=== PATIENT | female | born 1985 | race Caucasian/White ===

== ENCOUNTER 2016-08-07 10:07 | Day surgery (SDC) | payer MEDICAID, OTHER ==
--- NOTE | 2016-08-07 13:45 | US ---
INDICATION: Vaginal bleeding. ULTRASOUND OB LIMITED: Multiple ultrasonic images were obtained with transabdominal probe and failed to reveal a viable gestation in the uterus. The endometrial cavity is thickened. Detail is less than ideal due to empty urinary bladder. Endovaginal probe ultrasound will be necessary for further evaluation. No gross mass lesions or free fluid collections were identified. No adnexal mass lesions were seen. The right ovary measured 1.28 x 2.30 cm with a follicle noted. The left ovary measured 2.7 x 1.5 cm and was unremarkable. IMPRESSION: No viable gestation identified. Need endovaginal probe ultrasound for further evaluation. INDICATION: Need better visualization of the endometrial cavity and left ovary. ENDOVAGINAL PELVIC ULTRASOUND: Utilizing endovaginal probe, multiple ultrasonic images revealed very prominent endometrial cavity echo with relatively increased prominence in the lower uterine segment. A definite gestational sac is not identified - no viable intrauterine gestation was identified. No evidence of an ectopic could be identified. The uterus measured 10.8 x 4.63 x 5.1 cm. The endometrial cavity echo measured 22.9 mm. There is a minimal amount of free fluid in the posterior cul-de-sac. No adnexal mass lesions or free fluid collections were demonstrated. The right ovary measured 2.8 x 1.4 x 1.54 cm with follicles noted. The left ovary measured 2 x 1.1 x 0.7 cm and was unremarkable. IMPRESSION: 1. No definite ectopic . 2. No intrauterine gestation identified. 3. Very prominent endometrial cavity echoes suggest recent gestation and possibly clots present. Follow-up is recommended, as retained products of conception cannot be excluded. MTDD
[2016-08-07] MEDS ORDERED: Sodium Chloride 0.9% 10 ML Syringe FLUSH PRN (14:03)
[2016-08-07] MEDS ORDERED: Lactated Ringers 1,000 ML IV SCH (14:15)
[2016-08-07] MEDS ORDERED: Ketamine 500 mg/10 ML MDV IV ONE (14:32)
[2016-08-07] MEDS ORDERED: fentaNYL 100 MCG/2 ML SDV IV ONE (14:32)
[2016-08-07] MEDS ORDERED: Oxytocin 10 Units/1 ML SDV IV ONE (14:32)
[2016-08-07] MEDS ORDERED: Ondansetron 4 MG/2 ML SDV IVPUSH ONE (14:32)
[2016-08-07] MEDS ORDERED: Dexamethasone 4 MG/ML 5 ML MDV IVPUSH ONE (14:32)
[2016-08-07] MEDS ORDERED: Propofol 200 MG/20 ML SDV IV ONE (14:32)
[2016-08-07] MEDS ORDERED: Midazolam 1 MG/ML 2 ML SDV IV ONE (14:32)
[2016-08-07] MEDS ORDERED: Ibuprofen 600 MG Tab PO PRN (15:10)
[2016-08-07 16:58] VITALS: BP 92/48
--- NOTE | 2016-08-07 17:53 | PREOP ---
ADMISSION DATE: 08/07/2016 CHIEF COMPLAINT: Increased abdominal cramps and bleeding with incomplete spontaneous . HISTORY OF PRESENT ILLNESS: This patient is a 30-year-old female, 5, para 3-0-2-3, last menstrual period the mid June of this year, who was admitted after being seen in the emergency room with the above chief complaint. The patient states that she was doing well until last when she began having vaginal bleeding and spotting. She then began noticing increased cramps, more bleeding and spotting throughout the weekend. Bleeding became heavier today. It was actually quite heavy with clots and she thinks may be some tissue being passed. She presented to the emergency room because of increased pain and bleeding and an ultrasound was done. She had no sac, but there was a fair amount of blood and products of conception in the uterus. She has had previous miscarriages that she said she was able to do at home, but never had bleeding this heavy and cramps as hard. She was concerned and was currently found to have a hemoglobin of 10.6. She did not want to undergo any further bleeding and did not want to run the risk of transfusion, so she elected to proceed with a D and C. She has had no fever, chills, or night sweats. Denies any blurred vision or double vision. Her previous ended in two vaginal deliveries and one section. The 2nd vaginal delivery was after her section. She knows her blood type is A-positive and has not had any RhoGAM with any of her other pregnancies. She currently taking no other medicines. ALLERGIES: None that are known. SOCIAL HISTORY: She has not smoked now for 6 months; prior to that, she was about half pack per day for a few years. Alcohol, occasionally. PAST MEDICAL HISTORY: Other than that mentioned above includes neck surgery x3. She has had some pins placed in her left hand from previous fracture and the above-mentioned section. FAMILY HISTORY: Unremarkable. REVIEW OF SYSTEMS: Full review of systems was negative except for that mentioned above. PHYSICAL EXAMINATION: VITAL SIGNS: At this time showed her vitals to be as documented. HEENT: Unremarkable. Carotid pulses strong and equal without bruits. Thyroid was not enlarged. BACK: Straight. No deformities are noted. CHEST: Clear to auscultation and percussion. CARDIOVASCULAR: Revealed a normal S1 and S2 without murmur, rub, or gallop. ABDOMEN: Soft with tenderness noted in the lower quadrants and suprapubic area. There was no rebound or rigidity. Bowel sounds are present. No bruits were appreciated. Pelvic was not done by myself. The ER physician just finished when he said there was some clots and what appeared to be of products of conception in the cervical os with active bleeding. No adnexal masses were noted. EXTREMITIES: Otherwise unremarkable. LABORATORY DATA: Ultrasound as noted above with no viable gestational sac. Her hemoglobin was 10.6, hematocrit 32.2, and white count of 8800. Differential was unremarkable. Quantitative hCG was done was 11,572. IMPRESSION: Incomplete spontaneous with resultant increased bleeding, abdominal cramps, and anemia. PLAN: We will proceed with a D and C. Risks and benefits had been explained to both her and her significant other in detail including the possibility of infection, bleeding, uterine rupture etc, and they all agreed to proceed. /[id number] /CECILE
--- NOTE | 2016-08-07 23:11 | OR ---
DATE OF OPERATION: 08/07/2016 SURGEON: Heladio Remy MD PREOPERATIVE DIAGNOSIS: Incomplete spontaneous . POSTOPERATIVE DIAGNOSIS: Incomplete spontaneous . PROCEDURE: D and C. WINE BLENDER: None. PROCEDURE IN DETAIL: After risks and benefits had been explained to the patient and a time-out had been taken to identify the patient, the patient's date of , allergies, etc. She was placed in the dorsal lithotomy position and the perineum was prepped and draped in a sterile manner. Bimanual exam revealed a normal vaginal area. The cervix was dilated easily except a finger tip. Uterus is approximately 10 week size, anteverted. No other masses or abnormalities were identified. Weighted vaginal speculum was then placed and the anterior lip of the cervix was identified after retractor was placed anteriorly and anterior lip was grasped with a single-tooth tenaculum. The cervix was easily accept a 10 mm Milex curette. Therefore, suction and curettage were undertaken, removing a moderate amount of blood clots and possible placental tissue. No other tissue was identified. After curettage was undertaken throughout the entire endometrial cavity, sharp curette was placed into the endometrial cavity and completed through the endometrial cavity without difficulties. Only a small amount of remaining tissue was noted. This was again removed with the suction curette. Bleeding was minimal thereafter, and no other abnormalities were identified. The tenaculum was removed as was the weighted vaginal speculum. Bimanual exam revealed the uterus to be 6 to 8 weeks in size. Smooth and no other masses were identified. The procedure was then terminated. Sponge, needle, and instrument counts were all correct x2. The patient was awake and then transferred to her cot. Estimated blood loss was approximately 25 to 30 mL. She tolerated the procedure without any difficulty. /[id number] /MODL
--- NOTE | 2016-08-08 09:30 | ER ---
DATE SEEN: 08/07/2016 CHIEF COMPLAINT: Vaginal bleeding with cramping, , first trimester. Last menstrual period, 06/14/2016. She is approximately 7-1/2 to 8 weeks . This 6, para 3, AB 2-0-3 who presents with her with the onset of first trimester bleeding 4 days ago. She has moderate cramping and discomfort, but no associated fever. She has had 4 saturated pads for 2 hours and then 2 other pads that were full, since that in the last 4 hours. She has mild dizziness, mild lightheadedness, and no diaphoresis, chest pain, shortness of breath, or cough. She has mild cramping in the lower pelvic area. No back pain. No pain in the lower extremities. She has mild swelling on examination. MEDICATIONS: vitamins. PHYSICAL EXAMINATION: VITAL SIGNS: Blood pressure 140/97, heart rate 94, respirations 18, 99% oxygen saturation on room air, temperature is 36.8 degrees centigrade. GENERAL: Slightly overweight woman, lying in a position on her 's thigh as he sits on the gurney to comfort and support her. HEENT: PERRLA intact. Pharynx without abnormality. NECK: Supple. No thyromegaly. LUNGS: Clear to auscultation without rales, rhonchi, or wheezes. HEART: S1, S2. No murmur. ABDOMEN: Soft, mild suprapubic discomfort. No CVA percussion tenderness. With nurse present in the room, pelvic was performed. Moderate dark blood noted in the vagina, approximately 30 mL. Small tissue remnant noted at the os. No clots noted. Somewhat redundant vaginal vault. Bimanual examination of uterus: 6 to 10 cm size. Adnexa without tenderness. Serum quantitative hCG 11,572. Ultrasound; no sac. No heartbeat noted. demise noted. Placental separation is noted. ASSESSMENT: 1. Habitual , this would be her third miscarriage. 2. First trimester . Status discussed with Dr. Remy. The patient will have D and C arranged. He will be also discussing the ultrasound with Radiology. ADDITIONAL COMMENT: Hemoglobin is 10.6, white count 8800, PMNs 69, lymphocytes 23, monos 5, platelets 252,000. The patient is n.p.o., IV placed. /[id number] LS/MODL ADDENDUM: TIME SEEN: The patient was seen at 1035 hours. She is A positive. Does not require RhoGAM. /[id number] LS/MODL
== END 2016-08-07 16:31 | disposition home or self-care (01) ==
LOC: FB.ED 10:07 → FB.OB 15:00 → FB.ED 16:31
PROVIDERS: ATTEND Family Medicine
PROC: 10D18ZZ Extraction of Products of Conception, Retained, Via Natural or Artificial Opening Endoscopic (ICD-10-PCS; principal; 2016-08-07)
DX: O03.4 Incomplete spontaneous abortion without complication (principal); D64.9 Anemia, unspecified
CPT/HCPCS: 36415; 59812; 76815; 76817; 84702; 85025; 88305; 99285; J1100; J2250; J2405; J2590; J2704; J3010; J7120

== ENCOUNTER 2016-10-23 01:12 | Emergency (ER) | payer MEDICAID, OTHER ==
[2016-10-23] MEDS ORDERED: Sodium Chloride 0.9% 10 ML Syringe FLUSH PRN (01:24)
[2016-10-23] MEDS ORDERED: Ketorolac 30 MG/ML SDV IVPUSH ONE (01:24)
[2016-10-23] MEDS ORDERED: Ondansetron 4 MG/2 ML SDV IVPUSH ONE (01:25)
[2016-10-23] MEDS ORDERED: Sodium Chloride 0.9% 1,000 ML IV SCH (01:30)
--- NOTE | 2016-10-23 01:32 | EDM.PDOC ---
ED HPI GENERAL MEDICAL PROBLEM - General Stated Complaint: ABDOMINAL PAIN Time Seen by Provider: 10/23/16 01:28 Source of Information: Reports: Patient History Limitations: Reports: No Limitations - History of Present Illness INITIAL COMMENTS - FREE TEXT/NARRATIVE: c/o RUQ pain x 4h pt ate two Brats at 8:30 PM, 1h later she had pain in her RUQ, some nausea, had a nl loose BM x 1 earlier in the day had one similar episode several months ago at the same time of the evening no f/c/d, no sob, no V no prior abd surgery here with s.o. 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 Other OB/BYN History: Musculoskeletal History: Reports: Fracture Other Musculoskeletal History: fx L 4th digit Psychiatric History: Reports: Anxiety, Psych Hospitalization(s), Suicide Attempt Dermatologic History: Reports: Other (See Below) Other Dermatologic History: neck abscess with cyst - Infectious Disease History Infectious Disease History: Reports: Chicken Pox - Past Surgical History HEENT Surgical History: Reports: Oral Surgery, Tonsillectomy Female Surgical History: Reports: Section Musculoskeletal Surgical History: Reports: Other (See Below) Dermatological Surgical History: Reports: Other (See Below) Social & Family History - Family History Family Medical History: Noncontributory ED ROS GENERAL - Review of Systems Review Of Systems: See Below Constitutional: Reports: No Symptoms HEENT: Reports: No Symptoms Respiratory: Reports: No Symptoms Cardiovascular: Reports: No Symptoms Endocrine: Reports: No Symptoms GI/Abdominal: Reports: Abdominal Pain, Nausea : Reports: No Symptoms Musculoskeletal: Reports: No Symptoms Skin: Reports: No Symptoms Neurological: Reports: No Symptoms Psychiatric: Reports: No Symptoms Hematologic/Lymphatic: Reports: No Symptoms Immunologic: Reports: No Symptoms ED EXAM, GENERAL - Physical Exam Exam: See Below Exam Limited By: No Limitations General Appearance: Alert, WD/WN, No Apparent Distress Nose: Normal Inspection, Normal Mucosa, No Blood Throat/Mouth: Normal Inspection, Normal Lips, Normal Teeth, Normal Gums, Normal Oropharynx, Normal Voice, No Airway Compromise Head: Atraumatic, Normocephalic Neck: Normal Inspection, Supple, Non-Tender, Full Range of Motion Respiratory/Chest: No Respiratory Distress, Lungs Clear, Normal Breath Sounds, No Accessory Muscle Use, Chest Non-Tender Cardiovascular: Regular Rate, Rhythm, No Edema, No Gallop, No JVD, No Murmur, No Rub GI/Abdominal: Other (very good BS x 4, no guard, 1+ tender along colon from mid transverse colon to mid ascending colon, questionable rebound over the R mid ascending colon, NT in RLQ, NT at Mcknight's point, NT in epigastrium, ND, stool palpated in colon, no masses) Back Exam: Normal Inspection, Full Range of Motion, NT Extremities: Normal Inspection, Normal Range of Motion, Non-Tender, No Pedal Edema Neurological: Alert, Oriented, CN II-XII Intact, Normal Cognition, Normal Gait, No Motor/Sensory Deficits Psychiatric: Normal Affect, Normal Mood Skin Exam: Warm, Dry, Intact, Normal Color, No Rash Lymphatic: No Adenopathy Course - Vital Signs Last Recorded V/S: Last Vital Signs Temp 36.8 C 10/23/16 01:15 Pulse 84 10/23/16 01:15 Resp 20 10/23/16 01:15 BP 124/72 10/23/16 01:15 Pulse Ox - Orders/Labs/Meds Orders: Active Orders 24 hr Category Date Time Status Abdomen 2V AP Flat Upright [CR] Stat Exams 10/23/16 01:26 Ordered Sodium Chloride 0.9% [Normal Saline] 1,000 ml Med 10/23/16 01:30 Active IV ASDIRECTED Sodium Chloride 0.9% [Saline Flush] Med 10/23/16 01:24 Active 10 ml FLUSH ASDIRECTED PRN Saline Lock Insert [OM.PC] Routine Oth 10/23/16 01:24 Ordered Medication Orders Sodium Chloride (Normal Saline) 1,000 mls @ 999 mls/hr IV ASDIRECTED HANY Last Admin: 10/23/16 02:31 Dose: 999 mls/hr Sodium Chloride (Saline Flush) 10 ml FLUSH ASDIRECTED PRN PRN Reason: Keep Vein Open Last Admin: 10/23/16 02:31 Dose: 10 ml Labs: Laboratory Tests 10/23/16 10/23/16 10/23/16 Range/Units 01:30 01:30 01:50 WBC 9.8 (4.5-12.0) X10-3/uL RBC 4.34 (3.23-5.20) x10(6)uL Hgb 11.7 (11.5-15.5) g/dL Hct 35.0 (30.0-51.3) % MCV 80.6 (80-96) fL MCH 26.9 L (27.7-33.6) pg MCHC 33.4 (32.2-35.4) g/dL RDW 13.6 (11.5-15.5) % Plt Count 252 (125-369) X10(3)uL MPV 8.7 (7.4-10.4) fL Neut % (Auto) 56.6 (46-82) % Lymph % (Auto) 31.5 (13-37) % [place] % (Auto) 7.9 (4-12) % Eos % (Auto) 3 (1.0-5.0) % Baso % (Auto) 1 (0-2) % Neut # (Auto) 5.5 (1.6-8.3) # Lymph # (Auto) 3.1 (0.6-5.0) # [place] # (Auto) 0.8 (0.0-1.3) # Eos # (Auto) 0.3 (0.0-0.8) # Baso # (Auto) 0.1 (0.0-0.2) # Sodium (135-145) mmol/L Potassium (3.5-5.3) mmol/L Chloride (100-110) mmol/L Carbon Dioxide (23-29) mmol/L BUN (5-20) mg/dL Creatinine (0.6-1.3) mg/dL Est Cr Clr Drug Dosing Estimated GFR (MDRD) (>60) BUN/Creatinine Ratio (9-20) Glucose (80-116) mg/dL Calcium (8.6-10.2) mg/dL Total Bilirubin (0.1-1.3) mg/dL AST (5-27) IU/L ALT (14-26) IU/L Alkaline Phosphatase (56-112) IU/L C-Reactive Protein (0.0-1.0) mg/dL Total Protein (6.0-8.0) g/dL Albumin (3.5-5.2) g/dL Globulin g/dL Albumin/Globulin Ratio Amylase (28-100) U/L Urine Color Yellow (YELLOW) Urine Appearance Slightly cloudy (CLEAR) Urine pH 6.0 (5.0-6.5) Ur Specific [place] 1.025 (1.010-1.025) Urine Protein Negative (NEGATIVE) mg/dL Urine Glucose (UA) Normal (NEGATIVE) mg/dL Urine Ketones Negative (NEGATIVE) mg/dL Urine Occult Blood Negative (NEGATIVE) Urine Nitrite Negative (NEGATIVE) Urine Bilirubin Negative (NEGATIVE) Urine Urobilinogen Normal (NEGATIVE) mg/dL Ur Leukocyte Esterase Negative (NEGATIVE) Urine RBC 0-5 (0) Urine WBC 0-5 (0) Urine Bacteria Few H (NS) Urine HCG, Qual Negative (NEGATIVE) 10/23/16 Range/Units 01:50 WBC (4.5-12.0) X10-3/uL RBC (3.23-5.20) x10(6)uL Hgb (11.5-15.5) g/dL Hct (30.0-51.3) % MCV (80-96) fL MCH (27.7-33.6) pg MCHC (32.2-35.4) g/dL RDW (11.5-15.5) % Plt Count (125-369) X10(3)uL MPV (7.4-10.4) fL Neut % (Auto) (46-82) % Lymph % (Auto) (13-37) % [place] % (Auto) (4-12) % Eos % (Auto) (1.0-5.0) % Baso % (Auto) (0-2) % Neut # (Auto) (1.6-8.3) # Lymph # (Auto) (0.6-5.0) # [place] # (Auto) (0.0-1.3) # Eos # (Auto) (0.0-0.8) # Baso # (Auto) (0.0-0.2) # Sodium 139 (135-145) mmol/L Potassium 4.1 (3.5-5.3) mmol/L Chloride 106 (100-110) mmol/L Carbon Dioxide 27 (23-29) mmol/L BUN 18 (5-20) mg/dL Creatinine 0.8 (0.6-1.3) mg/dL Est Cr Clr Drug Dosing TNP Estimated GFR (MDRD) > 60 (>60) BUN/Creatinine Ratio 22.5 H (9-20) Glucose 111 (80-116) mg/dL Calcium 9.0 (8.6-10.2) mg/dL Total Bilirubin 0.3 (0.1-1.3) mg/dL AST 20 (5-27) IU/L ALT 13 L (14-26) IU/L Alkaline Phosphatase 37 L (56-112) IU/L C-Reactive Protein 0.9 (0.0-1.0) mg/dL Total Protein 7.4 (6.0-8.0) g/dL Albumin 3.8 (3.5-5.2) g/dL Globulin 3.6 g/dL Albumin/Globulin Ratio 1.1 Amylase 73 (28-100) U/L Urine Color (YELLOW) Urine Appearance (CLEAR) Urine pH (5.0-6.5) Ur Specific [place] (1.010-1.025) Urine Protein (NEGATIVE) mg/dL Urine Glucose (UA) (NEGATIVE) mg/dL Urine Ketones (NEGATIVE) mg/dL Urine Occult Blood (NEGATIVE) Urine Nitrite (NEGATIVE) Urine Bilirubin (NEGATIVE) Urine Urobilinogen (NEGATIVE) mg/dL Ur Leukocyte Esterase (NEGATIVE) Urine RBC (0) Urine WBC (0) Urine Bacteria (NS) Urine HCG, Qual (NEGATIVE) Meds: Medications Generic Name Dose Route Start Last Admin Trade Name Freq PRN Reason Stop Dose Admin Sodium Chloride 1,000 mls @ 999 mls/hr 10/23/16 01:30 10/23/16 02:31 Normal Saline IV 999 mls/hr ASDIRECTED HANY Administration Sodium Chloride 10 ml 10/23/16 01:24 10/23/16 02:31 Saline Flush FLUSH 10 ml ASDIRECTED PRN Administration Keep Vein Open Discontinued Medications Generic Name Dose Route Start Last Admin Trade Name Freq PRN Reason Stop Dose Admin Acetaminophen 1,000 mg 10/23/16 03:17 10/23/16 03:27 Tylenol Extra Strength PO 10/23/16 03:18 1,000 mg ONETIME ONE Administration Dicyclomine HCl 10 mg 10/23/16 03:17 10/23/16 03:27 Bentyl PO 10/23/16 03:18 10 mg ONETIME ONE Administration Ketorolac Tromethamine 30 mg 10/23/16 01:24 10/23/16 02:30 Toradol IVPUSH 10/23/16 01:25 30 mg ONETIME ONE Administration Ondansetron HCl 4 mg 10/23/16 01:25 10/23/16 02:30 Zofran IVPUSH 10/23/16 01:26 4 mg ONETIME ONE Administration - Re-Assessments/Exams Free Text/Narrative Re-Assessment/Exam: 10/23/16 03:09 labs neg, SG 1.025, KUB flat and upright with no AFL and stool throughout colon , R>L, pt still with tenderness at hepatic flexure and R half of transverse colon 10/23/16 03:48 pt declined MS, agreed to rest today Departure - Departure Time of Disposition: 03:49 Disposition: Home, Self-Care 01 Condition: good Clinical Impression: Spasm of bowel, Dehydration, Constipation - Discharge Information Prescriptions: Dicyclomine HCl [Bentyl] 10 mg PO QID #12 capsule Additional Instructions: Drink a 10-ounce bottle of magnesium citrate this morning. Drink a second bottle 6 hours. Take acetaminophen 500 mg 2 tabs and ibuprofen 200 mg 3 tabs 4 times a day today and tomorrow. For cramping and spasm, take dicyclomine 10 mg 1 tab 4 times a day for 2 days. Soak in warm tub for 10-15 minutes several times a day. Rest. Increase fluids, at least 2 liters daily without caffeine. No work today. See your physician tomorrow. Return to ED if you are feeling worse. Call your Physician or Return to Emergency Department if: * Your condition worsens in any way. * You develop fever greater than 100.4. * You have vomitting that does not stop with medications. * You have pain that is not controlled with medications. - My Orders Last 24 Hours: My Active Orders 10/23/16 01:24 Sodium Chloride 0.9% [Saline Flush] 10 ml FLUSH ASDIRECTED PRN Saline Lock Insert [OM.PC] Routine 10/23/16 01:26 Abdomen 2V AP Flat Upright [CR] Stat 10/23/16 01:30 Sodium Chloride 0.9% [Normal Saline] 1,000 ml IV ASDIRECTED - Assessment/Plan Last 24 Hours: My Active Orders 10/23/16 01:24 Sodium Chloride 0.9% [Saline Flush] 10 ml FLUSH ASDIRECTED PRN Saline Lock Insert [OM.PC] Routine 10/23/16 01:26 Abdomen 2V AP Flat Upright [CR] Stat 10/23/16 01:30 Sodium Chloride 0.9% [Normal Saline] 1,000 ml IV ASDIRECTED
[2016-10-23] MEDS ORDERED: Dicyclomine 10 MG Cap PO ONE (03:17)
[2016-10-23] MEDS ORDERED: Acetaminophen 500 MG Tab PO ONE (03:17)
[2016-10-23 03:56] VITALS: BP 124/62
--- NOTE | 2016-10-23 10:49 | CR ---
INDICATION: Right upper quadrant pain, question constipation. ABDOMEN: Five images of the abdomen were obtained in supine and upright projections and revealed two capsules in the left lower quadrant. An air-fluid level is noted in that area of the left lower quadrant of questionable significance. It may be incidental to fluid ingestion with the capsules. The pattern of gas and feces was otherwise nonspecific without evidence of a definite obstructive process or free air. No organomegaly, mass lesions, or pathologic calcifications were suggested - there are a few phleboliths in the pelvis, however, making it difficult to entirely exclude a distal ureteral calculus - correlate clinically. Findings do not strongly suggest constipation, as a normal amount of stool is suggested in the colon. IMPRESSION: Fairly nonspecific abdomen, as noted above. MTDD
== END 2016-10-23 03:56 | disposition home or self-care (01) ==
LOC: FB.ED 01:12
DX: E86.0 Dehydration (principal); K58.9 Irritable bowel syndrome, unspecified; K59.00 Constipation, unspecified; Z98.890 Other specified postprocedural states; Z90.89 Acquired absence of other organs
CPT/HCPCS: 36415; 74020; 80053; 81001; 81025; 82150; 85025; 86140; 96361; 96374; 96375; 99284; A9270; J1885; J2405; J7040; J7050

== ENCOUNTER 2017-02-14 14:50 | Emergency (ER) | payer MEDICAID, OTHER ==
[2017-02-14] MEDS ORDERED: ClonazePAM 1 MG Tab PO STA (15:00)
--- NOTE | 2017-02-14 15:06 | EDM.PDOCBH ---
ED HPI GENERAL MEDICAL PROBLEM - General Chief Complaint: Behavioral/Psych Stated Complaint: SOB, ANXIETY Time Seen by Provider: 02/14/17 15:02 Source of Information: Reports: Patient History Limitations: Reports: No Limitations - History of Present Illness INITIAL COMMENTS - FREE TEXT/NARRATIVE: 31 yo female with a pHx of panic attacks presents with another episode. Also has tingling of her hands and mouth. Feels like previous episodes, but is lasting longer than usual. Used to have clonazepam for these attacks, but ran out and didn't refill because the episodes were getting milder and further between. Is here with her male significant other. Onset: Today Onset Date: 02/14/17 Onset Time: 14:25 Duration: Minutes: Location: Reports: Generalized Severity: Moderate Improves with: Reports: Medication (clonazepam) Worsens with: Reports: Other (unknown) Context: Reports: Other (Hx of panic) Associated Symptoms: Reports: Shortness of Breath, Other (light-headed, tingling of face and extremities.). 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 Other OB/BYN History: Musculoskeletal History: Reports: Fracture Other Musculoskeletal History: fx L 4th digit Psychiatric History: Reports: Anxiety, Psych Hospitalization(s), Suicide Attempt Dermatologic History: Reports: Other (See Below) Other Dermatologic History: neck abscess with cyst - Infectious Disease History Infectious Disease History: Reports: Chicken Pox - Past Surgical History HEENT Surgical History: Reports: Oral Surgery, Tonsillectomy Female Surgical History: Reports: Section Musculoskeletal Surgical History: Reports: Other (See Below) Dermatological Surgical History: Reports: Other (See Below) Social & Family History - Family History Family Medical History: Noncontributory - Tobacco Use Smoking Status *Q: Never Smoker Second Hand Smoke Exposure: No - Caffeine Use Caffeine Use: Reports: Coffee - Recreational Drug Use Recreational Drug Use: No ED ROS GENERAL - Review of Systems Review Of Systems: See Below Constitutional: Reports: No Symptoms HEENT: Reports: No Symptoms Respiratory: Reports: Shortness of Breath Cardiovascular: Reports: No Symptoms Endocrine: Reports: No Symptoms GI/Abdominal: Reports: No Symptoms : Reports: No Symptoms Musculoskeletal: Reports: No Symptoms Skin: Reports: No Symptoms Neurological: Reports: Dizziness (light-headed), Numbness (hands/face), Tingling Psychiatric: Reports: Anxiety Hematologic/Lymphatic: Reports: No Symptoms ED EXAM, BEHAVIORAL HEALTH - Physical Exam Exam: See Below Exam Limited By: No Limitations General Appearance: Alert, WD/WN, Anxious, Mild Distress Eye Exam: Bilateral Eye: Normal Inspection Ears: Normal External Exam, Normal Canal, Hearing Grossly Normal Nose: Normal Inspection, Normal Mucosa, No Blood Throat/Mouth: Normal Inspection, Normal Lips, Normal Teeth, Normal Oropharynx, Normal Voice, No Airway Compromise Head: Atraumatic, Normocephalic Neck: Normal Inspection Respiratory/Chest: No Respiratory Distress, Lungs Clear, Normal Breath Sounds, No Accessory Muscle Use, Other (hyperventilation) Cardiovascular: Regular Rate, Rhythm, No Edema GI/Abdominal: Normal Bowel Sounds, Soft, Non-Tender Back Exam: Normal Inspection. No: CVA Tenderness (R), CVA Tenderness (L) Extremities: Normal Inspection, Normal Range of Motion, Non-Tender, No Pedal Edema Neurological: Alert, Normal Mood/Affect, CN II-XII Intact, Normal Cognition, No Motor/Sensory Deficits, Oriented x 3 Psychiatric: Alert, Normal Cognition, Other (anxious) Skin Exam: Warm, Dry, Intact, Normal color, No rash COURSE, BEHAVIORAL HEALTH COMP - Course Vital Signs: Last Vital Signs Temp 36.5 C 02/14/17 15:21 Pulse 57 L 02/14/17 15:21 Resp 13 02/14/17 15:21 BP 123/81 02/14/17 15:21 Pulse Ox 100 02/14/17 15:21 Orders, Labs, Meds: Medications Discontinued Medications Generic Name Dose Route Start Last Admin Trade Name Freq PRN Reason Stop Dose Admin Clonazepam 1 mg 02/14/17 15:00 02/14/17 15:08 Klonopin PO 02/14/17 15:01 1 mg NOW STA Administration Departure - Departure Time of Disposition: 15:45 Disposition: Home, Self-Care 01 Condition: Good Clinical Impression: Panic disorder - Discharge Information Referrals: Garcia Tyler MD [Primary Care Provider] - Forms: ED Department Discharge
[2017-02-14 16:00] VITALS: BP 133/98
== END 2017-02-14 15:55 | disposition home or self-care (01) ==
LOC: FB.ED 14:50
DX: F41.0 Panic disorder [episodic paroxysmal anxiety] (principal)
CPT/HCPCS: 99283; A9270

== ENCOUNTER 2017-02-14 17:26 | Emergency (ER) | payer OTHER ==
[2017-02-14] MEDS ORDERED: ClonazePAM 0.5 MG Tab PO ONE (17:49)
[2017-02-14] MEDS ORDERED: LORazepam 0.5 MG Tab PO ONE (18:28)
--- NOTE | 2017-02-14 18:31 | EDM.PDOC ---
ED HPI GENERAL MEDICAL PROBLEM - General Chief Complaint: General Stated Complaint: ANXIETY Time Seen by Provider: 02/14/17 18:10 Source of Information: Reports: Patient History Limitations: Reports: No Limitations - History of Present Illness INITIAL COMMENTS - FREE TEXT/NARRATIVE: 31 yo female was seen earlier in the day today for a panic attack that resolved with 1 mg of clonazepam. Had gone a long time without a spell and used to get relief from 0.5 mg dosing. Is not on any SSRI's due to SE's. Had tried Zoloft, Prozac, and Celexa. Has not tried paroxetine. Significant other is leaving to work in [place] soon for an extended period, just found out today. Took clonazepam 0.5 mg at the onset of her 2nd panic attack today and it failed to resolve her attack. Is here now for additional help. Onset: Today Onset Date: 02/14/17 Onset Time: 17:30 Duration: Minutes:, Constant Location: Reports: Generalized Quality: Reports: Other (tingling of extrems/mouth) Severity: Moderate Improves with: Reports: Medication Worsens with: Reports: Other (unknown) Context: Reports: Other (significant other leaving [facility] for work soon.) Associated Symptoms: Reports: Shortness of Breath, Other (tingling, some abdominal discomfort) Treatments OPERATOR SUPPLY: Reports: Other Medication(s) (clonazepam 0.5 mg po) - Related Data Allergies Allergy/AdvReac Type Severity Reaction Status Date / Time No Known Allergies Allergy Verified 02/14/17 18:07 Home Meds: Home Meds ClonazePAM [KlonoPIN] 0.5 mg PO TID PRN #4 tab 02/14/17 [Rx] ClonazePAM [KlonoPIN] 1 - 2 tab PO TID PRN #20 tab 02/14/17 [Rx] Ibuprofen 600 mg PO Q6H PRN 02/14/17 [History] PARoxetine [Paxil] 10 mg PO DAILY #60 ml 02/14/17 [Rx] Past Medical History - Past Health History Medical/Surgical History: Denies 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/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 History 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: , 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 Other OB/BYN History: Musculoskeletal History: Reports: Fracture Other Musculoskeletal History: fx L 4th digit Psychiatric History: Reports: Anxiety, Psych Hospitalization(s), Suicide Attempt Dermatologic History: Reports: Other (See Below) Other Dermatologic History: neck abscess with cyst - Infectious Disease History Infectious Disease History: Reports: Chicken Pox - Past Surgical History HEENT Surgical History: Reports: Oral Surgery, Tonsillectomy Female Surgical History: Reports: Section Musculoskeletal Surgical History: Reports: Other (See Below) Dermatological Surgical History: Reports: Other (See Below) Social & Family History - Family History Family Medical History: Noncontributory - Tobacco Use Smoking Status *Q: Former Smoker Used Tobacco, but Quit: Yes Month Tobacco Last Used: quit a year ago Second Hand Smoke Exposure: No - Caffeine Use Caffeine Use: Reports: Coffee - Recreational Drug Use Recreational Drug Use: No ED ROS GENERAL - Review of Systems Review Of Systems: See Below Constitutional: Reports: No Symptoms HEENT: Reports: No Symptoms Respiratory: Reports: Shortness of Breath Cardiovascular: Reports: No Symptoms GI/Abdominal: Reports: No Symptoms : Reports: No Symptoms Musculoskeletal: Reports: No Symptoms Skin: Reports: No Symptoms Neurological: Reports: Tingling (around mouth and fingers) Psychiatric: Reports: Anxiety Hematologic/Lymphatic: Reports: No Symptoms ED EXAM, GENERAL - Physical Exam Exam: See Below Exam Limited By: No Limitations General Appearance: Alert, WD/WN, No Apparent Distress Eye Exam: Bilateral Eye: Normal Inspection, PERRL Ears: Normal External Exam, Normal Canal, Hearing Grossly Normal Ear Exam: Bilateral Ear: Auricle Normal, Canal Normal Nose: Normal Inspection, Normal Mucosa Throat/Mouth: Normal Inspection, Normal Lips, Normal Teeth, Normal Oropharynx, Normal Voice, No Airway Compromise Head: Atraumatic, Normocephalic Neck: Normal Inspection, Supple Respiratory/Chest: No Respiratory Distress, Lungs Clear, Normal Breath Sounds, No Accessory Muscle Use, Other (hyperventilation) Cardiovascular: Regular Rate, Rhythm, No Edema GI/Abdominal: Normal Bowel Sounds, Soft, Non-Tender, No Distention Back Exam: Normal Inspection, Full Range of Motion. No: CVA Tenderness (R), CVA Tenderness (L) Extremities: Normal Inspection, Non-Tender, No Pedal Edema, Pedal Edema Neurological: Alert, Oriented, CN II-XII Intact, Normal Cognition Psychiatric: Normal Affect, Anxious Skin Exam: Warm, Dry, Intact, Normal Color, No Rash Lymphatic: No Adenopathy Course - Vital Signs Last Recorded V/S: Last Vital Signs Temp 36.5 C 02/14/17 18:09 Pulse 86 02/14/17 18:09 Resp 20 02/14/17 18:09 BP 133/81 02/14/17 18:09 Pulse Ox 100 02/14/17 18:09 - Orders/Labs/Meds Meds: Medications Discontinued Medications Generic Name Dose Route Start Last Admin Trade Name Freq PRN Reason Stop Dose Admin Clonazepam 1 mg 02/14/17 17:49 02/14/17 17:59 Klonopin PO 02/14/17 17:50 1 mg ONETIME ONE Administration Paroxetine HCl 10 mg 02/14/17 18:19 Paxil PO 02/14/17 18:20 NOW STA Departure - Departure Time of Disposition: 18:37 Disposition: Home, Self-Care 01 Condition: Fair Clinical Impression: Panic disorder - Discharge Information Prescriptions: ClonazePAM [KlonoPIN] 1 - 2 tab PO TID PRN #20 tab PRN Reason: Anxiety PARoxetine [Paxil] 10 mg PO DAILY #60 ml Referrals: Garcia Tyler MD [Primary Care Provider] - Forms: ED Department Discharge Additional Instructions: Take clonazepam 1-2 every 8 hrs as needed. Take paroxetine daily as directed. Recheck with a mental health provider at your earliest opportunity. No driving when taking clonazepam.
[2017-02-14 18:46] VITALS: BP 127/76
== END 2017-02-14 18:40 | disposition home or self-care (01) ==
LOC: FB.ED 17:26
DX: F41.0 Panic disorder [episodic paroxysmal anxiety] (principal); Z87.891 Personal history of nicotine dependence; Z79.899 Other long term (current) drug therapy
CPT/HCPCS: 99283; A9270

== ENCOUNTER 2017-04-28 00:16 | Emergency (ER) | payer SELFPAY ==
[2017-04-28 01:16] VITALS: BP 136/84
[2017-04-28] MEDS ORDERED: Ondansetron 4 MG Tab.DIS PO STA (01:21)
[2017-04-28] MEDS ORDERED: Acetaminophen 500 MG Tab PO ONE (01:22)
[2017-04-28] MEDS ORDERED: Alum Hydroxide/Mag Hydroxide 15 ML, Lidocaine 2% 15 ML PO ONE ×2 (01:22)
--- NOTE | 2017-04-28 01:26 | EDM.PDOC ---
ED HPI GENERAL MEDICAL PROBLEM - General Chief Complaint: Abdominal Pain Stated Complaint: ABD PAIN Time Seen by Provider: 04/28/17 01:15 Source of Information: Reports: Patient, Old Records History Limitations: Reports: No Limitations - History of Present Illness INITIAL COMMENTS - FREE TEXT/NARRATIVE: 31 yo female here with epigastric pain for a couple days. Its seems to be worse at night. Was seen last night in [place], [place] ER for this. Was not sent home with any pain meds. They told her she needed to schedule an outpatient US which she has not yet done. She is 5 weeks . No fever. Has nausea without vomiting. Was given an H2 ramírez upon discharge last night. H. pylori testing was negative. She is . Both her mother and sister have had their gallbladders out. Onset: Other Onset Date: 04/25/17 Duration: Day(s):, Waxing/Waning Location: Reports: Abdomen Quality: Reports: Burning Severity: Moderate Improves with: Reports: None Worsens with: Reports: Other (at night) Context: Reports: Other (see HPI) Associated Symptoms: Reports: Loss of Appetite, Nausea/Vomiting (no vomiting). 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 Other OB/BYN History: Musculoskeletal History: Reports: Fracture Other Musculoskeletal History: fx L 4th digit Psychiatric History: Reports: Anxiety, Psych Hospitalization(s), Suicide Attempt Dermatologic History: Reports: Other (See Below) Other Dermatologic History: neck abscess with cyst - Infectious Disease History Infectious Disease History: Reports: Chicken Pox - Past Surgical History HEENT Surgical History: Reports: Oral Surgery, Tonsillectomy Female Surgical History: Reports: Section Musculoskeletal Surgical History: Reports: Other (See Below) Dermatological Surgical History: Reports: Other (See Below) Social & Family History - Family History Family Medical History: Noncontributory - Tobacco Use Smoking Status *Q: Never Smoker Used Tobacco, but Quit: Yes Month Tobacco Last Used: quit a year ago Second Hand Smoke Exposure: No - Caffeine Use Caffeine Use: Reports: Coffee - Recreational Drug Use Recreational Drug Use: No ED ROS GENERAL - Review of Systems Review Of Systems: See Below Constitutional: Reports: Decreased Appetite HEENT: Reports: No Symptoms Respiratory: Reports: No Symptoms Cardiovascular: Reports: No Symptoms Endocrine: Reports: No Symptoms GI/Abdominal: Reports: Abdominal Pain (epigastric), Decreased Appetite, Nausea. Denies: Constipation, Diarrhea, Distension, Hematemesis, Hematochezia, Vomiting : Reports: No Symptoms Musculoskeletal: Reports: No Symptoms Skin: Reports: No Symptoms Neurological: Reports: No Symptoms Psychiatric: Reports: No Symptoms Hematologic/Lymphatic: Reports: No Symptoms ED EXAM, GI/ABD - Physical Exam Exam: See Below Exam Limited By: No Limitations General Appearance: Alert, WD/WN, No Apparent Distress Eyes: Bilateral: Normal Appearance Ears: Normal External Exam, Normal Canal, Hearing Grossly Normal Nose: Normal Inspection, Normal Mucosa, No Blood Throat/Mouth: Normal Inspection, Normal Lips, Normal Teeth, Normal Oropharynx, Normal Voice, No Airway Compromise Head: Atraumatic, Normocephalic Neck: Normal Inspection, Supple, Non-Tender Respiratory/Chest: No Respiratory Distress, Lungs Clear, Normal Breath Sounds, No Accessory Muscle Use Cardiovascular: Regular Rate, Rhythm, No Edema GI/Abdominal Exam: Normal Bowel Sounds, Soft, No Distention, Tender (epigastric and RUQ tenderness.). No: Distended, Abnormal Bowel Sounds, Hepatomegaly, Splenomegaly Back Exam: Normal Inspection Extremities: Normal Inspection Neurological: Alert, Oriented, CN II-XII Intact, Normal Cognition, No Motor/ Sensory Deficits Psychiatric: Normal Affect, Normal Mood Skin Exam: Warm, Dry, Intact, Normal Color, No Rash Lymphatic: No Adenopathy Course - Vital Signs Last Recorded V/S: Last Vital Signs Temp 36.7 C 04/28/17 00:35 Pulse 78 04/28/17 00:35 Resp 16 04/28/17 00:35 BP 136/84 04/28/17 00:35 Pulse Ox 98 04/28/17 00:35 - Orders/Labs/Meds Labs: Laboratory Tests 04/28/17 04/28/17 04/28/17 Range/Units 01:30 01:30 01:30 WBC 8.4 (4.5-12.0) X10-3/uL RBC 3.58 (3.23-5.20) x10(6)uL Hgb 10.5 L (11.5-15.5) g/dL Hct 30.8 (30.0-51.3) % MCV 86.0 (80-96) fL MCH 29.4 (27.7-33.6) pg MCHC 34.1 (32.2-35.4) g/dL RDW 12.5 (11.5-15.5) % Plt Count 271 (125-369) X10(3)uL Alkaline Phosphatase (56-112) IU/L C-Reactive Protein < 0.5 (0.0-1.0) mg/dL Amylase 70 (28-100) U/L 04/28/17 Range/Units 01:30 WBC (4.5-12.0) X10-3/uL RBC (3.23-5.20) x10(6)uL Hgb (11.5-15.5) g/dL Hct (30.0-51.3) % MCV (80-96) fL MCH (27.7-33.6) pg MCHC (32.2-35.4) g/dL RDW (11.5-15.5) % Plt Count (125-369) X10(3)uL Alkaline Phosphatase 31 L (56-112) IU/L C-Reactive Protein (0.0-1.0) mg/dL Amylase (28-100) U/L Meds: Medications Discontinued Medications Generic Name Dose Route Start Last Admin Trade Name Adolph PRN Reason Stop Dose Admin Acetaminophen 1,000 mg 04/28/17 01:22 04/28/17 01:33 Tylenol Extra Strength PO 04/28/17 01:23 1,000 mg ONETIME ONE Administration Al Hydroxide/Mg Hydroxide 15 0 ml 04/28/17 01:22 04/28/17 01:33 ml/ Lidocaine HCl 15 ml PO 04/28/17 01:23 30 ml ONETIME ONE Administration Ondansetron HCl 4 mg 04/28/17 01:21 04/28/17 01:34 Zofran Odt PO 04/28/17 01:22 4 mg ONETIME STA Administration Departure - Departure Time of Disposition: 02:10 Disposition: Home, Self-Care 01 Condition: Fair Clinical Impression: Epigastric pain, RUQ abdominal pain, Nausea - Discharge Information Referrals: PCP,None [Primary Care Provider] - Forms: ED Department Discharge
[2017-04-28] MEDS ORDERED: Ondansetron 4 MG Tab.DIS PO ONE (02:07)
[2017-04-28] MEDS ORDERED: Acetaminophen/oxyCODONE 325-5 MG Tab PO ONE (02:07)
== END 2017-04-28 02:15 | disposition home or self-care (01) ==
LOC: FB.ED 00:16
DX: R10.13 Epigastric pain (principal); R11.0 Nausea
CPT/HCPCS: 36415; 82150; 84075; 85027; 86140; 99284; A9270

== ENCOUNTER 2017-07-29 13:20 | Emergency (ER) | payer MEDICAID, OTHER ==
[2017-07-29] MEDS ORDERED: Alum Hydroxide/Mag Hydroxide 15 ML, Lidocaine 2% 15 ML PO ONE ×2 (13:41)
[2017-07-29] MEDS ORDERED: Ondansetron 8 MG Tab.DIS PO ONE (13:41)
[2017-07-29] MEDS ORDERED: Sodium Chloride 0.9% 10 ML Syringe FLUSH PRN (13:47)
--- NOTE | 2017-07-29 14:54 | EDM.PDOC ---
ED HPI GENERAL MEDICAL PROBLEM - General Chief Complaint: Chest Pain Stated Complaint: epigastric pain Time Seen by Provider: 07/29/17 13:40 Source of Information: Reports: Patient History Limitations: Reports: Other (, epicgastric pain) - History of Present Illness INITIAL COMMENTS - FREE TEXT/NARRATIVE: 31 y.o.w.f 18 weeks , came to the ed deu to acute mid upper abd.pain with pain radiating to her left and right upper abdomen. Symptoms started spontaneously while watching TV. Pt had similar symptoms before her . She was on Prilosec in the past without improvement. The symptoms are lasting 5- 10 min and sometimes longer. Pt did not see a GI specialist but will see her PMD tomorrow. No Trauma. No other acute medical issues. BP 163/103 pulse 85 Temp 36.6 Pulse ox 100% RR 18 Onset Date: 07/29/17 Onset Time: 13:00 Duration: Hour(s): Location: Reports: Abdomen Quality: Reports: Ache, Burning Severity: Moderate Improves with: Reports: Medication Worsens with: Reports: None Associated Symptoms: Reports: Other (nausea) Chest Pain Score (Numeric/FACES): 10 - Related Data Allergies Allergy/AdvReac Type Severity Reaction Status Date / Time No Known Allergies Allergy Verified 07/29/17 13:36 Home Meds: Home Meds NK [No Known Home Meds] 04/28/17 [History] Past Medical History - Past Health History Medical/Surgical History: Denies 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: , 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 Other OB/BYN History: Musculoskeletal History: Reports: Fracture, Other (See Below) Other Musculoskeletal History: fx L 4th digit Psychiatric History: Reports: Anxiety, Psych Hospitalization(s), Suicide Attempt Dermatologic History: Reports: Other (See Below) Other Dermatologic History: neck abscess with cyst - Infectious Disease History Infectious Disease History: Reports: Chicken Pox - Past Surgical History HEENT Surgical History: Reports: Oral Surgery, Tonsillectomy Female Surgical History: Reports: Section Social & Family History - Family History Family Medical History: Noncontributory - Tobacco Use Smoking Status *Q: Former Smoker Used Tobacco, but Quit: Yes Month Tobacco Last Used: quit 1.5 years ago Second Hand Smoke Exposure: No - Caffeine Use Caffeine Use: Reports: Coffee - Recreational Drug Use Recreational Drug Use: No ED ROS GENERAL - Review of Systems Review Of Systems: See Below Constitutional: Reports: No Symptoms HEENT: Reports: No Symptoms Respiratory: Reports: No Symptoms Cardiovascular: Reports: No Symptoms Endocrine: Reports: No Symptoms GI/Abdominal: Reports: Abdominal Pain (epigastric) : Reports: No Symptoms Musculoskeletal: Reports: No Symptoms Skin: Reports: No Symptoms Neurological: Reports: No Symptoms Psychiatric: Reports: No Symptoms Hematologic/Lymphatic: Reports: No Symptoms Immunologic: Reports: No Symptoms ED EXAM, GI/ABD - Physical Exam Exam: See Below Exam Limited By: No Limitations General Appearance: Alert, WD/WN, Mild Distress Eyes: Bilateral: Normal Appearance Ears: Normal External Exam Nose: Normal Inspection Throat/Mouth: Normal Inspection, Normal Lips, Normal Teeth Head: Atraumatic, Normocephalic Neck: Normal Inspection, Supple, Non-Tender, Full Range of Motion Respiratory/Chest: No Respiratory Distress, Lungs Clear, Normal Breath Sounds Cardiovascular: Normal Peripheral Pulses, Regular Rate, Rhythm, No Edema, No Gallop, No Rub GI/Abdominal Exam: Tender (epigastric) (Female) Exam: Deferred Rectal (Female) Exam: Deferred Back Exam: Normal Inspection, Full Range of Motion Extremities: Normal Inspection, Normal Range of Motion, Non-Tender, No Pedal Edema Neurological: Alert, Oriented, CN II-XII Intact, Normal Cognition, Normal Gait, Normal Reflexes, No Motor/Sensory Deficits Psychiatric: Normal Affect, Anxious Skin Exam: Warm Lymphatic: No Adenopathy Course - Vital Signs Text/Narrative:: 31 y.o.w.f 18 weeks , came to the ed deu to acute mid upper abd.pain with pain radiating to her left and right upper abdomen. Symptoms started spontaneously while watching TV. Pt had similar symptoms before her . She was on Prilosec in the past without improvement. The symptoms are lasting 5- 10 min and sometimes longer. Pt did not see a GI specialist but will see her PMD tomorrow. No Trauma. No other acute medical issues. BP 163/103 pulse 85 Temp 36.6 Pulse ox 100% RR 18 PE: WNWD w f with acute mid upper abd. pain, Burning/dull Impression: Gastritism vs Hiatal hernia vs esophagitis. Tx: Zosyn, G I cocktail Reexam: Symptoms subsided Plan: D/C with instructions Last Recorded V/S: Last Vital Signs Temp 36.3 C 07/29/17 13:40 Pulse 70 07/29/17 15:00 Resp 15 07/29/17 15:00 BP 107/44 L 07/29/17 15:00 Pulse Ox 99 07/29/17 15:00 - Orders/Labs/Meds Orders: Active Orders 24 hr Category Date Time Status Saline Lock Insert [OM.PC] Routine Oth 07/29/17 13:47 Ordered Meds: Medications Discontinued Medications Generic Name Dose Route Start Last Admin Trade Name Freq PRN Reason Stop Dose Admin Al Hydroxide/Mg Hydroxide 15 0 ml 07/29/17 13:41 07/29/17 13:52 ml/ Lidocaine HCl 15 ml PO 07/29/17 13:42 15 ml ONETIME ONE Administration Ondansetron HCl 8 mg 07/29/17 13:41 07/29/17 13:47 Zofran Odt PO 07/29/17 13:42 8 mg ONETIME ONE Administration Sodium Chloride 10 ml 07/29/17 13:47 07/29/17 13:48 Saline Flush FLUSH 10 ml ASDIRECTED PRN Administration Keep Vein Open Departure - Departure Time of Disposition: 14:50 Disposition: Home, Self-Care 01 Condition: Good Clinical Impression: Gastritis Qualifiers: Gastritis type: unspecified gastritis Chronicity: unspecified Gastritis bleeding: without bleeding Qualified Code(s): K29.70 - Gastritis, unspecified, without bleeding - Discharge Information Referrals: Garcia Tyler MD [Primary Care Provider] - Forms: ED Department Discharge Additional Instructions: Please use Maalox 30 cc daily, every evening for 5 days. Please f/u with your PMD as scheduled. Please come back if your symptoms get worse acutely - My Orders Last 24 Hours: My Active Orders 07/29/17 13:47 Saline Lock Insert [OM.PC] Routine - Assessment/Plan Last 24 Hours: My Active Orders 07/29/17 13:47 Saline Lock Insert [OM.PC] Routine
[2017-07-29 15:02] VITALS: BP 107/44
== END 2017-07-29 15:00 | disposition home or self-care (01) ==
LOC: FB.ED 13:20
DX: O99.612 Diseases of the digestive system complicating pregnancy, second trimester (principal); K29.70 Gastritis, unspecified, without bleeding; Z3A.18 18 weeks gestation of pregnancy; Z87.891 Personal history of nicotine dependence
CPT/HCPCS: 99283; A9270; J7050

== ENCOUNTER 2019-02-20 20:04 | Emergency (ER) | payer MEDICAID ==
[2019-02-20] MEDS ORDERED: Ondansetron 4 MG Tab.DIS PO ONE ×2 (20:05→21:11)
--- NOTE | 2019-02-20 20:15 | EDM.PDOC ---
ED HPI GENERAL MEDICAL PROBLEM - General Stated Complaint: ABDOMIAL PAIN ,CHEST PAIN Time Seen by Provider: 02/20/19 20:04 Source of Information: Reports: Patient, Family History Limitations: Reports: No Limitations - History of Present Illness INITIAL COMMENTS - FREE TEXT/NARRATIVE: 33 y.o.w.f came to the ED with her family due to lower ant bilateral chest pain. Pain is lasting from 1 min to 1 hours and then subsides spontaneously.Pt was seen in this ED for same and was told she must "have her GB removed" No trauma. 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 Denies . No other acute med issues. BP 118/67 RR 18 Pulse ox 98% on RA Temp 36.8 Onset Date: 02/20/19 Onset Time: 08:00 Duration: Hour(s):, Getting Worse, Intermittent Location: Reports: Chest, Abdomen Quality: Reports: Burning Severity: Moderate Improves with: Reports: Medication Worsens with: Reports: Other Context: Reports: Other Associated Symptoms: Reports: Chest Pain, Nausea/Vomiting bilateral upper quadrant abdomen/left chest/leftg arm Pain Score (Numeric/FACES): 5 - Related Data Allergies Allergy/AdvReac Type Severity Reaction Status Date / Time No Known Allergies Allergy Verified 02/20/19 23:27 Home Meds: Home Meds Famotidine [Pepcid] 20 mg PO BID #60 tab 02/20/19 [Rx] Ondansetron [Zofran ODT] 4 mg PO Q6H PRN #20 tab.dis 02/20/19 [Rx] Past Medical History - Past Health History Medical/Surgical History: Denies Medical/Surgical History CLIENT EVALUATOR History: Reports: , Spontaneous Other CLIENT EVALUATOR History: Musculoskeletal History: Reports: Fracture, Other (See Below) Other Musculoskeletal History: fx L 4th digit Psychiatric History: Reports: Anxiety, Psych Hospitalization(s), Suicide Attempt Dermatologic History: Reports: Other (See Below) Other Dermatologic History: neck abscess with cyst - Infectious Disease History Infectious Disease History: Reports: Chicken Pox - Past Surgical History HEENT Surgical History: Reports: Oral Surgery, Tonsillectomy Female Surgical History: Reports: Section Social & Family History - Family History Family Medical History: Noncontributory - Caffeine Use Caffeine Use: Reports: Coffee ED ROS GENERAL - Review of Systems Review Of Systems: See Below Constitutional: Reports: No Symptoms HEENT: Reports: No Symptoms Respiratory: Reports: No Symptoms Cardiovascular: Reports: Chest Pain Endocrine: Reports: No Symptoms GI/Abdominal: Reports: Abdominal Pain (epigstric) : Reports: No Symptoms Musculoskeletal: Reports: No Symptoms Skin: Reports: No Symptoms Neurological: Reports: No Symptoms Psychiatric: Reports: No Symptoms Hematologic/Lymphatic: Reports: No Symptoms Immunologic: Reports: No Symptoms ED EXAM, GENERAL - Physical Exam Exam: See Below Exam Limited By: No Limitations General Appearance: Alert, WD/WN, Mild Distress Eye Exam: Bilateral Eye: Normal Inspection Ears: Normal External Exam Ear Exam: Bilateral Ear: Auricle Normal Nose: Normal Inspection, Normal Mucosa, No Blood Throat/Mouth: Normal Inspection, Normal Lips, Normal Teeth, Normal Gums, No Airway Compromise Head: Atraumatic, Normocephalic Neck: Normal Inspection, Supple, Non-Tender, Full Range of Motion Respiratory/Chest: No Respiratory Distress, Lungs Clear, Normal Breath Sounds, Chest Non-Tender Cardiovascular: Normal Peripheral Pulses, Regular Rate, Rhythm, No Edema, No Gallop Peripheral Pulses: 1+: Brachial (L) GI/Abdominal: Normal Bowel Sounds, Tender (epigastric tenderness) (Female) Exam: Deferred Rectal (Female) Exam: Deferred Back Exam: Normal Inspection, Full Range of Motion Extremities: Normal Inspection, Normal Range of Motion, Non-Tender Neurological: Alert, Oriented, CN II-XII Intact, Normal Cognition, Normal Gait Psychiatric: Normal Affect, Normal Mood Skin Exam: Warm, Dry, Intact, Normal Color, No Rash Lymphatic: No Adenopathy Course - Vital Signs Text/Narrative:: 33 y.o.w.f came to the ED with her family due to lower ant bilateral chest pain. Pain is lasting from 1 min to 1 hours and then subsides spontaneously.Pt was seen in this ED for same and was told she must "have her GB removed" No trauma. 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 Denies . No other acute med issues. BP 118/67 RR 18 Pulse ox 98% on RA Temp 36.8 PE: WNWD W F with epigastric pain and nausea Imaging: CXR: NAD labs: CBC, BMP and troponin were neg. ECG showed NSR BUN/Cr ration elevated Impression: Dehydration, atypical CP Tx: Zofran, GI cocktail Reexam: Improved Plan: D/C with instructions Last Recorded V/S: Last Vital Signs Temp 36.5 C 02/20/19 20:25 Pulse 69 02/20/19 22:00 Resp 15 02/20/19 22:00 BP 129/72 02/20/19 22:00 Pulse Ox 98 02/20/19 22:00 - Orders/Labs/Meds Orders: Active Orders 24 hr Category Date Time Status EKG Documentation Completion [RC] ASDIRECTED Care 02/20/19 20:15 Active Chest 1V Frontal [CR] Stat Exams 02/20/19 20:13 Taken EKG 12 Lead [EK] Routine Ther 02/20/19 20:14 Ordered Labs: Laboratory Tests 02/20/19 02/20/19 02/20/19 Range/Units 20:20 20:20 20:20 WBC 9.5 (4.5-12.0) X10-3/uL RBC 4.71 (3.23-5.20) x10(6)uL Hgb 14.0 (11.5-15.5) g/dL Hct 42.6 D (30.0-51.3) % MCV 90.5 (80-96) fL MCH 29.8 (27.7-33.6) pg MCHC 32.9 (32.2-35.4) g/dL RDW 12.5 (11.5-15.5) % Plt Count 232 (125-369) X10(3)uL MPV 8.2 (7.4-10.4) fL Neut % (Auto) 76.3 (46-82) % Lymph % (Auto) 14.7 (13-37) % [place] % (Auto) 4.1 (4-12) % Eos % (Auto) 4 (1.0-5.0) % Baso % (Auto) 1 (0-2) % Neut # (Auto) 7.1 (1.6-8.3) # Lymph # (Auto) 1.4 (0.6-5.0) # [place] # (Auto) 0.4 (0.0-1.3) # Eos # (Auto) 0.4 (0.0-0.8) # Baso # (Auto) 0.1 (0.0-0.2) # Sodium 141 (135-145) mmol/L Potassium 3.8 (3.5-5.3) mmol/L Chloride 105 (100-110) mmol/L Carbon Dioxide 24 (21-32) mmol/L BUN 27 H (7-18) mg/dL Creatinine 0.7 (0.55-1.02) mg/dL Est Cr Clr Drug Dosing TNP Estimated GFR (MDRD) > 60 (>60) BUN/Creatinine Ratio 38.6 H (9-20) Glucose 103 (80-116) mg/dL Calcium 8.1 L (8.6-10.2) mg/dL Total Bilirubin 0.4 (0.1-1.3) mg/dL Direct Bilirubin 0.14 (0.10-0.20) mg/dL AST 33 H (5-25) IU/L ALT 26 (12-36) U/L Alkaline Phosphatase 70 (56-112) IU/L Troponin I < 0.017 L (<0.017-0.056) ng/mL Total Protein 7.4 (6.0-8.0) g/dL Albumin 3.9 (3.5-5.2) g/dL Urine Color (YELLOW) Urine Appearance (CLEAR) Urine pH (5.0-6.5) Ur Specific [place] (1.010-1.025) Urine Protein (NEGATIVE) mg/dL Urine Glucose (UA) (NORMAL) mg/dL Urine Ketones (NEGATIVE) mg/dL Urine Occult Blood (NEGATIVE) Urine Nitrite (NEGATIVE) Urine Bilirubin (NEGATIVE) Urine Urobilinogen (NEGATIVE) mg/dL Ur Leukocyte Esterase (NEGATIVE) Urine RBC (0-5) Urine WBC (0-5) Ur Squamous Epith Cells (NS,R,O) Urine Bacteria (NS) Urine HCG, Qual (NEGATIVE) Urine Opiates Screen (NEGATIVE) Ur Oxycodone Screen (NEGATIVE) Ur Propoxyphene Screen (NEGATIVE) Ur Barbituates Screen (NEGATIVE) Ur Tricyclics Screen (NEGATIVE) Ur Phencyclidine Scrn (NEGATIVE) Ur Amphetamine Screen (NEGATIVE) Urine MDMA Screen (NEGATIVE) U Benzodiazepines Scrn (NEGATIVE) U Cocaine Metab Screen (NEGATIVE) U Marijuana (THC) Screen (NEGATIVE) 02/20/19 02/20/19 02/20/19 Range/Units 20:39 20:39 20:39 WBC (4.5-12.0) X10-3/uL RBC (3.23-5.20) x10(6)uL Hgb (11.5-15.5) g/dL Hct (30.0-51.3) % MCV (80-96) fL MCH (27.7-33.6) pg MCHC (32.2-35.4) g/dL RDW (11.5-15.5) % Plt Count (125-369) X10(3)uL MPV (7.4-10.4) fL Neut % (Auto) (46-82) % Lymph % (Auto) (13-37) % [place] % (Auto) (4-12) % Eos % (Auto) (1.0-5.0) % Baso % (Auto) (0-2) % Neut # (Auto) (1.6-8.3) # Lymph # (Auto) (0.6-5.0) # [place] # (Auto) (0.0-1.3) # Eos # (Auto) (0.0-0.8) # Baso # (Auto) (0.0-0.2) # Sodium (135-145) mmol/L Potassium (3.5-5.3) mmol/L Chloride (100-110) mmol/L Carbon Dioxide (21-32) mmol/L BUN (7-18) mg/dL Creatinine (0.55-1.02) mg/dL Est Cr Clr Drug Dosing Estimated GFR (MDRD) (>60) BUN/Creatinine Ratio (9-20) Glucose (80-116) mg/dL Calcium (8.6-10.2) mg/dL Total Bilirubin (0.1-1.3) mg/dL Direct Bilirubin (0.10-0.20) mg/dL AST (5-25) IU/L ALT (12-36) U/L Alkaline Phosphatase (56-112) IU/L Troponin I (<0.017-0.056) ng/mL Total Protein (6.0-8.0) g/dL Albumin (3.5-5.2) g/dL Urine Color Yellow (YELLOW) Urine Appearance Clear (CLEAR) Urine pH 5.0 (5.0-6.5) Ur Specific [place] 1.025 (1.010-1.025) Urine Protein Trace (NEGATIVE) mg/dL Urine Glucose (UA) Normal (NORMAL) mg/dL Urine Ketones 15 H (NEGATIVE) mg/dL Urine Occult Blood Negative (NEGATIVE) Urine Nitrite Negative (NEGATIVE) Urine Bilirubin Small H (NEGATIVE) Urine Urobilinogen 1 H (NEGATIVE) mg/dL Ur Leukocyte Esterase Small H (NEGATIVE) Urine RBC 0-5 (0-5) Urine WBC 0-5 (0-5) Ur Squamous Epith Cells Moderate H (NS,R,O) Urine Bacteria Few H (NS) Urine HCG, Qual Negative (NEGATIVE) Urine Opiates Screen Negative (NEGATIVE) Ur Oxycodone Screen Negative (NEGATIVE) Ur Propoxyphene Screen Negative (NEGATIVE) Ur Barbituates Screen Negative (NEGATIVE) Ur Tricyclics Screen Negative (NEGATIVE) Ur Phencyclidine Scrn Negative (NEGATIVE) Ur Amphetamine Screen Negative (NEGATIVE) Urine MDMA Screen Negative (NEGATIVE) U Benzodiazepines Scrn Negative (NEGATIVE) U Cocaine Metab Screen Negative (NEGATIVE) U Marijuana (THC) Screen Negative (NEGATIVE) Meds: Medications Discontinued Medications Generic Name Dose Route Start Last Admin Trade Name Freq PRN Reason Stop Dose Admin Al Hydroxide/Mg Hydroxide 15 0 ml 02/20/19 21:20 02/20/19 21:24 ml/ Lidocaine HCl 15 ml PO 02/20/19 21:21 30 ml ONETIME ONE Administration Ondansetron HCl 4 mg 02/20/19 21:11 02/20/19 21:18 Zofran Odt PO 02/20/19 21:12 4 mg ONETIME ONE Administration Departure - Departure Time of Disposition: 21:59 Disposition: Home, Self-Care 01 Condition: Good Clinical Impression: Dehydration, Atypical chest pain Gastritis Qualifiers: Gastritis type: unspecified gastritis Chronicity: unspecified Gastritis bleeding: without bleeding Qualified Code(s): K29.70 - Gastritis, unspecified, without bleeding Prescriptions: Famotidine [Pepcid] 20 mg PO BID #60 tab Ondansetron [Zofran ODT] 4 mg PO Q6H PRN #20 tab.dis PRN Reason: Nausea Instructions: Diarrhea, Adult, Gastritis, Adult, Rehydration, Adult Referrals: Garcia Tyler MD [Primary Care Provider] - Forms: ED Department Discharge Additional Instructions: Please take Zofran for nausea, Pepcid as recommended, please drink water one gallon daily. Please f/u come back if your symptoms get worse acutely - My Orders Last 24 Hours: My Active Orders 02/20/19 20:13 Chest 1V Frontal [CR] Stat 02/20/19 20:14 EKG 12 Lead [EK] Routine 02/20/19 20:15 EKG Documentation Completion [RC] ASDIRECTED - Assessment/Plan Last 24 Hours: My Active Orders 02/20/19 20:13 Chest 1V Frontal [CR] Stat 02/20/19 20:14 EKG 12 Lead [EK] Routine 02/20/19 20:15 EKG Documentation Completion [RC] ASDIRECTED
[2019-02-20] MEDS ORDERED: Alum Hydroxide/Mag Hydroxide 15 ML, Lidocaine 2% 15 ML PO ONE ×2 (21:20)
[2019-02-20 23:45] VITALS: BP 129/72; PULSE 69
--- NOTE | 2019-02-21 10:55 | CR ---
INDICATION: Chest pain. CHEST: An AP portable upright view of the chest was obtained, 02/20/19. Overlying EKG leads are noted. Minimal dextroconcave scoliosis is noted in lower middle thoracic spine. The heart and mediastinum are unremarkable. An active infiltrate or effusion was not identified. Bilateral nipple shadows are noted at the lung bases. IMPRESSION: No acute process. Report was called to Dr. Tabares at 2056 hours on 02/20/19. [facility]
== END 2019-02-20 22:15 | disposition home or self-care (01) ==
LOC: FB.ED 20:04
DX: K29.70 Gastritis, unspecified, without bleeding (principal); R07.89 Other chest pain; E86.0 Dehydration; Z98.890 Other specified postprocedural states
CPT/HCPCS: 36415; 71045; 80048; 80076; 80305; 81001; 81025; 84484; 85025; 93005; 99285; A9270